=== PATIENT | female | born 1965 | race Caucasian/White ===

== ENCOUNTER 2016-11-27 09:05 | Day surgery (SDC) | payer OTHER ==
[~2016-11-27] VITALS: Ht 152.4 cm; Wt 88.0 kg
[~2016-11-27 09:05] MED LIST: CHOL100045 PO; Clindamycin 900 mg/50 mL D5W IV SCH; FLUO40CA PO; GABA-502 PO; HYDR25TA4 PO; Lactated Ringer's 1,000 ML IV SCH; METF500T4 PO; PRE20 PO
[2016-11-27] MEDS ORDERED: Propofol 10,000 mCg/mL 20 mL Inj ONE (09:06)
[2016-11-27] MEDS ORDERED: fentaNYL-PF 50 mCg/mL 2 mL Inj ONE (09:06)
[2016-11-27] MEDS ORDERED: Lidocaine PF 1% 30 mL Inj ONE (09:06)
[2016-11-27] MEDS ORDERED: Lactated Ringer's 500 ML IV PRN (09:47)
[2016-11-27] MEDS: Lactated Ringer's 1,000 ML IV SCH ×2 (09:49→10:18)
[2016-11-27] MEDS ORDERED: Phenylephrine 10,000 mCg/mL Inj IVPUSH PRN (09:50)
[2016-11-27] MEDS ORDERED: Labetalol 5 mg/mL 4 mL Inj IV PRN (09:50)
[2016-11-27] MEDS ORDERED: Dexamethasone 4 mg/mL Inj IVPUSH PRN (09:50)
[2016-11-27] MEDS ORDERED: fentaNYL-PF 50 mCg/mL 2 mL Inj IVPUSH PRN (09:50)
[2016-11-27] MEDS ORDERED: Atropine 0.4 mg/mL Inj IVPUSH PRN (09:50)
[2016-11-27] MEDS ORDERED: HYDROmorphone 1 mg/mL Inj IVPUSH PRN (09:50)
[2016-11-27] MEDS ORDERED: hydrALAZINE 20 mg/mL Inj IVPUSH PRN (09:50)
[2016-11-27] MEDS ORDERED: EPHEDrine Sulfate 50 mg/mL Inj IVPUSH PRN (09:50)
[2016-11-27] MEDS ORDERED: Ondansetron 2 mg/mL 2 mL Inj IVPUSH PRN (09:50)
[2016-11-27 10:02] VITALS: BP 142/72; PULSE 62; RESP 20; O2SAT 96
--- NOTE | 2016-11-27 10:15 | PCM.HPANE ---
Patient Data Date of Service: Nov 27, 2016 Surgeon Admitting Provider: Attending Provider:Pepito Penaloza MD Primary Care Physician:Nestor Other Provider:Isai Scott Anesthesia Reason for Visit Left Trigger Thumb, Ganglion Cyst Ht/WT & BMI Height (Feet): 4 Height (Inches): 12 Weight (Kilograms): 88 Body Mass Index 38.00 Allergies Coded Allergies: cephalexin (Verified Allergy, Severe, HIVES, 11/25/16) metronidazole (Unverified Allergy, Severe, HIVES, 11/25/16) metoclopramide (Unverified Allergy, Unknown, UNKNOWN, 11/25/16) codeine (Verified Adverse Reaction, Severe, N&V, 11/25/16) methylphenidate (Verified Adverse Reaction, Severe, GETS EMOTIONAL, ) Past Anesthesia History Anesthesia History: Denies:: Fam Anesthesia Reaction, Fam Malignant Hypertherm Diabetes History Hx Diabetes?: Yes Type of Diabetes: Type II Glycemic Control: Oral Medication Current Bedside Blood Glucose: 119 MRSA MRSA: No Medications Hypertension Medication: Yes (HCTZ) Home Meds Incl Beta Christine: No Reported Medications Cholecalciferol (Vitamin D3) (Vitamin D)1,000 Unit Capsule1,000 Unit PO DAILY # 1 BOTTLE Ref 0 11/25/16 Metformin 500 Mg [id number] Mg PO BID Ref 0 11/25/16 Gabapentin 300 Mg Axstgtz113 Mg PO TID Ref 0 11/25/16 Fluoxetine 40 Mg Mrhnxkl93 Mg PO DAILY Ref 0 11/25/16 Discontinued Reported Medications Prednisone (PredniSONE)20 Mg Omqcgz50 Mg PO DAILY Ref 0 11/25/16 Hydrochlorothiazide 25 Mg Kexjwu46 Mg PO DAILY 30 Days Ref 0 11/25/16 History History of ENT Problems?: No Hx of Heart Problems?: Yes Cardiovascular History: Positive for:: Hypertension (not treated) Denies:: Heart Murmur Irregular Heartbeat (C/OF PALPITATIONS MPS 05/2014 EF 71% WNL) Valvular Heart Disease Hx of Respiratory Problem?: Yes Respiratory History: Positive for:: Use of C-PAP Machine (JUDY+ SLEEP STUDY 06/2014) Hx Neurologic Problems?: No Hx of GI Problems?: No Hx of Problems?: No Female Hx: Denies:: Currently Skin History: Denies:: History Skin Disorders? Pressure Ulcers Hx Musculoskeletal Problems?: Yes Musculoskeletal History: Denies:: Back Injury (C/OF CHRONIC LOWER BACK PAIN) Hx of Psycho/Social Problems?: Yes Psycho Social History: Positive for:: Anxiety Hx Depression Hx Surgeries?: No Hx Any Other Health Problems?: No Other History: Denies:: Cancer Endocrine Disease Hospitalization Thyroid Disease History Blood Transfusions: Denies:: Blood Transfusions Hx Diabetes: YesBedside Blood Glucose: 119 Hx Alcohol Use: NoHx Substance Use: No Smoking Status: Current Every Day Smoker Have You Smoked inLast 12 mo: Yes Stop/Bang Treated for Sleep Apnea?: Yes Do You Have a CPAP Machine?: Yes S-Snoring: Do You Snore Loudly: Yes T-Tired: feel tired, fatigued: Yes O-Obsered: Observed not breath: Yes P-Blood Pressure: treated: Yes B- Body Mass Index > 35 kg/m2: Yes A- Age over 50: Yes N- Neck Large Circumference: No G- Gender Male: No JUDY Total Score: 6 JUDY Risk Assessment: High Risk, =/>3 Yes Risk Assessment Category Category 1A: Patient has history of documented sleep apnea, and HAS NOT received any narcotic, sedative or anesthesia administration during this stay. Category 1B: Patient has history of documented sleep apnea, and HAS received any narcotic , sedative or anesthesia administration during this stay Category 2: Patient has SUSPECTED Obstructive Sleep Apnea, and HAS received any narcotic , sedative or anesthesia administration during this stay. Category 3: Patient has SUSPECTED Obstructive Sleep Apnea and HAS NOT received narcotic, sedative or anesthesia administration during this stay. Category 4: Outpatient in Procedural Areas with known sleep apnea or who screen positive for High Risk via the STOP/BANG questionnaire. Exam Exam General Appearance: Alert, Oriented X3, Cooperative HEENT/AIRWAY: Neck Movement (Thick), Mouth Opening (Wide) Lungs: Clear to Auscultation, Normal Air Movement Heart: Regular Rate/Rhythm, Normal S1, Normal S2 Meds/Labs/Diagnostics Bedside Blood Glucose: 119 Plan Impression Patient chart reviewed, patient interviewed and anesthestic plan with risks, benefits, and alternatives discussed, and informed consent obtained. NPO Status: MN ASA Physical Status: ASA3 Severe Disease Anesthetic Plan: MAC Bene/Risks/Altern/Consents: Yes HP Complete Prior to Induction: Yes Braydon Thakkar MD Nov 27, 2016 09:47
--- NOTE | 2016-11-27 11:14 | PCM.ANEP1 ---
Post Anesthesia Phase 1 PACU Phase 1 Assessment Date of Service: Nov 27, 2016 Vital Signs Phase II 96% RA, HR 62, RR 20, T 36.5, BP 124/60 Vital Signs Date Time Temp Pulse Resp B/P Pulse Ox O2 Delivery O2 Flow Rate FiO2 11/27/16 10:02 36.1 62 20 142/72 96 Room Air Level of Alertness: Awake, talking CIFUENTES's with Equal Strength: Yes Pain: No Nausea or Vomiting: No Oxygen Delivery: Room Air Lungs: Normal Air Movement Braydon Thakkar MD Nov 27, 2016 11:14
[2016-11-27 11:16] VITALS: BP 124/60; PULSE 64; RESP 16; O2SAT 96
[2016-11-27 11:58] VITALS: BP 124/64; PULSE 71; RESP 16; O2SAT 94
--- NOTE | 2016-11-27 12:44 | PCM.ANEP2 ---
Post Anesthesia Evaluation ASA/CMS Post Anesthesia Date of Service: Nov 27, 2016 VS in Patient's Normal Range?: Yes Resp Stable; Airway Patent?: Yes CV Function & Hydration Stable: Yes Mental Status Recovered?: Yes Pain control Satisfactory?: Yes N/V Control Satisfactory?: Yes Braydon Thakkar MD Nov 27, 2016 12:44
--- NOTE | 2016-11-27 14:45 | OP ---
[address] [address] OPERATIVE REPORT PATIENT: JOSEPH FLORENTINO : 1965 MR#: [id number] ADMIT: 11/27/2016 JOB ID: [id number] DATE OF SURGERY: 11/27/2016 PREOPERATIVE DIAGNOSIS(ES): 1. Left thumb ganglion cyst. 2. Left trigger thumb. POSTOPERATIVE DIAGNOSIS(ES): 1. Left thumb ganglion cyst. 2. Left trigger thumb. PROCEDURE: 1. Excision of left thumb flexor ganglion cyst. 2. Left thumb A1 chelsea release. SURGEON: Pepito Penaloza MD MANAGER PAPER: None. ANESTHESIA: MAC with local. COMPLICATIONS: None apparent. ESTIMATED BLOOD LOSS: Minimal. SPECIMEN: Left thumb ganglion cyst to Pathology. INDICATIONS FOR PROCEDURE: This is a 51-year-old female patient with a history of left thumb trigger thumb. I have previously treated this with a steroid injection. It has recurred. The patient also has a palpable ganglion cyst in this area. At this point, a trigger thumb release and excision of the ganglion cyst is indicated. PROCEDURES AND FINDINGS: The patient was identified in the preoperative area. Surgical site was marked. The patient was then taken back to the operating room and placed supine on the operating table. Appropriate time-outs were taken. MAC was induced smoothly. The patient was then prepped and draped in the usual sterile manner. Local anesthesia was then infiltrated to the surgical site consisting of 1% lidocaine and 0.25% Marcaine. The patient's left upper extremity was then exsanguinated and tourniquet inflated to 250 mmHg. A chevron incision was then made directly over the A1 chelsea. This was deepened just through the skin. I then performed blunt dissection with a pair of tenotomy scissors to deepen down toward the flexor apparatus. It was noted that there was a ganglion cyst in this area that was adherent to the A1 chelsea. With the soft tissue retracted out of the way, I resected the ganglion cyst off of the A1 chelsea. This was passed off to Pathology as a specimen. The A1 chelsea was then released in its entirety with a #15 blade under direct visualization. At this point, the anesthesia with lightened. The patient was asked to range her thumb fully. There was no more tendon clicking. However, the patient did have some joint crepitus due to inactivity. Tourniquet was released and hemostasis was obtained with electrocautery. The incision was then reapproximated using several 4-0 nylon horizontal mattress sutures. The patient tolerated the procedure well. Needle count, sponge count, instrument counts were correct at the end of the procedure. The patient was then transported to recovery in stable condition.
--- NOTE | 2016-11-28 13:45 | PATH ---
SURGICAL PATHOLOGY Attending Physician:Pepito Penaloza CASE STATUS: Signed Out PATIENT NAME: JOSEPH FLORENTINO PID: [id number] : 1965 DATE COLLECTED:11/27/2016 15:29 SPECIMEN: Ganglion Cyst CLINICAL HISTORY: LEFT THUMB GANGLION CYST FINAL DIAGNOSIS: 1.SPECIMEN DESIGNATED LEFT THUMB GANGLION CYST: GANGLION CYST. ICD10 CODE M67.4 GROSS DESCRIPTION: The specimen is received in one formalin filled container labeled with the patient's name, sublabeled "left thumb ganglion cyst" and consists of a 0.4 x 0.4 x 0.3 CM light yellow laughlin portion of tissue. The specimen is inked blue, bisected and entirely submitted in one cassette. 11/27/2016 DAC MICRO DESCRIPTION: See diagnosis. ICD-9 CODES: CPT CODES: 1: 81226 Electronically Signed Out Pepito Edmonds MD [facility] [address], [place] [address] Technical component performed at [facility], [facility] [address], [place], [address]
== END 2016-11-27 23:59 | disposition home or self-care (01) ==
LOC: SAS 09:05
PROVIDERS: ATTEND Plastic Surgery
DX: M67.442 Ganglion, left hand (principal); M65.312 Trigger thumb, left thumb; I10 Essential (primary) hypertension; E11.9 Type 2 diabetes mellitus without complications; F41.9 Anxiety disorder, unspecified; F32.9 Major depressive disorder, single episode, unspecified; M54.5 Low back pain; Z79.52 Long term (current) use of systemic steroids; Z79.84 Long term (current) use of oral hypoglycemic drugs
CPT/HCPCS: 26055; 26160; J2250; J3010; J7120